=== PATIENT | female | born 1945 | race Caucasian/White ===

== ENCOUNTER 2016-09-30 15:17 | Emergency (ER) | payer MEDICARE, OTHER ==
[~2016-09-30] VITALS: Ht 162.6 cm; Wt 52.3 kg
[2016-09-30 15:22] VITALS: BP 127/67; PULSE 69; RESP 16; O2SAT 100
--- NOTE | 2016-09-30 15:29 | ED.REPORT ---
HPI-Chest Pain 40 and Over Date of Service September 30, 2016 ED Provider: Dr. Bojorquez 71 y/o female with no pertinent hx presents to the ED complaining of constant chest pain which radiates to her left arm, onset 4 days ago. The pt reports the pain feels like "my cat is sitting on me" and rates it 4/10 in severity. Her pain had been intermittent for the last few days but has been constant since waking up today. She states "I don't have good vision today" and "my hands are turning purple". The pt notes that the more anxious she gets, the stronger the pain seems to be. The pt denies waking up from the pain at night, nausea, diaphoresis, palpitations and edema.She also denies any modifying factors of the pain. She was able to do her daily activities and go for a walk for the last few days but she chose not to do any exercise today as a precaution. The pt has not had a stress test. She did not take an aspirin today. Nursing Notes Stated Complaint: CHEST DISCOMFORT SENT FROM Chief Complaint: Chest Pain Nursing Notes Reviewed: Yes ([place], [place] not reconciled) Allergies: Coded Allergies: No Known Allergies (Verified Allergy, Unknown, 10/25/03) Uncoded Allergies: No Known Allergies (Allergy, Unknown, 10/25/03) General Time Seen by MD: 15:27 Chief Complaint Chest pain Hx Obtained From: Patient Arrived By: Walk-in Sudden in Onset?: Yes Onset Occurred: 4 days ago Symptom Duration: Since onset Location: : Chest left Quality: Pressure Radiation: : Arm left Severity: Current: Pain level 4 out of 10 Severity: Maximum: Pain level 4 out of 10 Recent Healthcare: Recent doctor visit Similar Sx Previous: No Past Medical History Past Medical History Breast cancer (s/p surgery) Osteoporosis Past Surgical History Breast cancer Smoking History Never Smoker Social History Other Social History: Good social support, Ambulatory Status Independent Review of Systems Reports: Discoloration of her hands Cardiovascular: Reports: Chest pain, Denies: Edema, Palpitations GI: Denies: Nausea Musculoskeletal: Reports: Extremity pain (left arm) Skin: Denies Diaphoresis Neurologic: Reports: Vision change Psychiatric: Reports: Anxiety Complete sys rev & neg: except as marked. Physical Exam Initial Vital Signs Vital Signs (First) Date Time Temp Pulse Resp B/P Pulse Ox O2 Delivery O2 Flow Rate FiO2 09/30/16 15:22 36.3 69 16 127/67 100 Room Air Initial VS: Reviewed, Vital signs normal Head / Eyes: Atraumatic, Normocephalic, PERRL Neck: Supple, Non-tender, Full range of motion Extremities: Vascular intact, Neuro intact, No swelling, No tenderness Skin: Warm, Dry, No cyanosis Neurologic: Alert, Oriented, Nonfocal General/Constitutional: Awake, Alert, No acute distress, Well appearing, Cooperative Respiratory / Chest: Atraumatic, Breath sounds NL, Breath sounds = bilat, No respiratory distress, No rales, No rhonchi, No wheezing Cardiovascular: Heart rate NL, Regular rhythm, Heart sounds NL, No gallop, No murmurs, No rubs Abdomen: Atraumatic, Soft Lower Extremity / Pelvis / MS: Atraumatic, Full range of motion, No deformity, Neurologic intact, Vascular intact Upper Extremity / MS: Atraumatic, Full range of motion, No deformity, Neurologic intact, Vascular intact Interpretation & Diagnostics Lab Results Interpretation Result Diagram: 09/30/16 1550 09/30/16 1550 Test 09/30/16 15:50 White Blood Count 7.0th/mm3 (3.8-10.1) Red Blood Count 4.25mil/mm3 (3.90-5.20) Hemoglobin 13.2g/dL (12.0-15.6) Hematocrit 39.6% (35.0-46.0) Mean Corpuscular Volume 93.2fL (81-100) Mean Corpuscular Hemoglobin 31.1pg (27.0-35.0) Mean Corpuscular Hemoglobin Concent 33.3% (32.0-37.0) Red Cell Distribution Width 12.5% (12.3-15.4) Platelet Count 215bil/L (150-400) Neutrophils (%) (Auto) 48.1% (40-74) Lymphocytes (%) (Auto) 36.1% (14-46) Monocytes (%) (Auto) 7.9% (4-12) Eosinophils (%) (Auto) 6.8% (0-5) Basophils (%) (Auto) 1.0% (0-3) Sodium Level 142mEq/L (134-144) Potassium Level 3.8mEq/L (3.5-5.2) Chloride Level 102mEq/L (97-108) Carbon Dioxide Level 27mmol/L (18-29) Blood Urea Nitrogen 16mg/dL (8-27) Creatinine 0.92mg/dL (0.57-1.00) Estimat Glomerular Filtration Rate 87mL/min (>59) Glucose Level 94mg/dL (60-99) Calcium Level 9.2mg/dL (8.5-10.1) Magnesium Level 2.0mg/dL (1.6-2.6) Total Bilirubin 0.2mg/dL (0.0-1.2) Aspartate Amino Transf (AST/SGOT) 28U/L (0-50) Alanine Aminotransferase (ALT/SGPT) 18U/L (0-32) Alkaline Phosphatase 75U/L (25-165) Troponin T < 0.010ug/L (0.0-0.011) Total Protein 6.8g/dL (6.4-8.4) Albumin 3.9g/dL (3.4-5.0) Lipase 35U/L (13-60) Hold [place]lain Top Tube Received (Received) Lab Results Interpretation: CBC normal CMP normal Troponin #1 negative-this is after his of continuous symptoms so there is no indication for serial markers) Lipase normal X-Ray Chest Interpretation Chest Xray Interpretation: IMPRESSION: Negative chest. No acute cardiopulmonary process is evident. Dictated by: Allen Long M.D. on 09/30/2016 at 14:57 Approved by: Allen Long M.D. on 09/30/2016 at 14:58 View: Portable, 1 view Interpretation / Wet Read by: Interpret - Radiologist Re-Eval/Medical Decision Med Decision/Clinical Course This is a 71-year-old female presents with somewhat atypical chest discomforts been continuous for several days. It is nonexertional and she has been able to do her regular walk exercise without symptoms, but because it was radial to the shoulder joint to urgent care to get checked out, was referred to the emergency department for further evaluation. His pleuritic discomfort, she wonders if there is a component of anxiety or musculoskeletal. There has been no dyspnea, diaphoresis, nausea vomiting. On exam she has normal vitals, and clinically appears well. He is a normal EKG. She has a normal chest x-ray. And her blood work is normal including a troponin-which in the setting of multiple days of continuous discomfort is indicative that this is not an acute cardiac syndrome/myocardial infarction, or unstable angina. The patient's calculated HEART cor is 2, which she gets 2 points for age- bleeding or low risk for MACE at an appropriate candidate for discharge. An return precautions reviewed with the patient. At this point a dangerous etiology has not been identified. There are no features identified indicate a pulmonary embolus, pneumothorax, pneumonia, esophageal rupture or acute coronary syndrome. Source of Hx: Old records Time of Eval: 17:33 Patient Status: Condition improved Re-Evaluation/Progress Note: Rechecked pt. Discussed lab, imaging results and diagnosis. Informed the pt of the plan to discharge. Pt understands and agrees with plan. F/U instructions and RTER warning given. All questions addressed. Differential Diagnosis: Positive: Chest pain, acute, Negative: Acute coronary syndrome, Dysrhythmia, Esophagitis, Gun shot wound chest, Myocardial infarction, Pneumomediastinum, Pneumonia, Pulmonary edema, Pulmonary embolism, Stab wound chest Counseled Regarding: Diagnosis, Lab results Discharge & Departure Primary Impression: Chest pain Chest pain type: unspecified Qualified Code: R07.9 - Chest pain, unspecified Disposition: Home Discharge Condition All VS Reviewed: Yes Referrals: Kadi Mills MD (PCP) Scribe Attestation Portions of this note were transcribed by Camille Kinney. I, , personally performed the history, physical exam and medical decision-making;I reviewed and confirmed the accuracy of the information in the transcribed note. Signed by Shama Davies. 09/30/16 [id number] copies to: Kadi Mills MD, Matthew F MD September 30, 2016 15:29 Camille Kinney September 30, 2016 15:33
--- NOTE | 2016-09-30 15:59 | DRSVH ---
PROCEDURE: X-RAY CHEST ONE VIEW, PORTABLE ([id number]) INDICATIONS: CP TECHNIQUE: One view of the chest was acquired. COMPARISON: None. FINDINGS: Surgical changes and devices: Clips within the right axillary region are noted. Lungs and pleura: There may be mild hyperexpansion of the lungs. However, evaluation for pulmonary h yperexpansion is difficult without a lateral view. No focal consolidation, effusion, or pneumothorax is evident. Mediastinum: Mediastinal contours appear normal. Heart size is normal. Bones and chest wall: No suspicious bony lesions. Overlying soft tissues appear unremarkable. IMPRESSION: Negative chest. No acute cardiopulmonary process is evident. Dictated by: Allen Long M.D. on 09/30/2016 at 14:57 Approved by: Allen Long M.D. on 09/30/2016 at 14:58
[2016-09-30 16:05] LABS: EOSINOPHILS % (AUTO) 6.8 % (0-5); MONOCYTES % (AUTO) 7.9 % (4-12); Mean Corpuscular Hemoglobin 31.1 pg (27.0-35.0); Mean Corpuscular Volume 93.2 fL (81-100); NEUTROPHILS % (AUTO) 48.1 % (40-74); Platelet Count 215 bil/L (150-400)
[2016-09-30 16:37] LABS: TROPONIN T < 0.010 ug/L (0.0-0.011)
[2016-09-30 17:04] VITALS: BP 117/67; PULSE 71; RESP 16; O2SAT 97
[2016-09-30 17:43] VITALS: BP 125/75; PULSE 68; RESP 16; O2SAT 98
== END 2016-09-30 17:45 | disposition home or self-care (01) ==
LOC: SED 15:17
DX: R07.9 Chest pain, unspecified (principal); Z85.3 Personal history of malignant neoplasm of breast

== ENCOUNTER → 2016-12-01 | Day surgery (SDC) | payer MEDICARE, OTHER ==
[~2016-12-01] VITALS: Ht 162.6 cm; Wt 50.4 kg
[~2016-12-01] MED LIST: ALEN10TA5 PO; Atropine 0.4 mg/mL Inj IVPUSH PRN; CHOL200047 PO; FOLI1TAB3 PO; Lactated Ringer's 1,000 ML IV ONE; Lactated Ringer's 1,000 ML IV SCH; MAGN250T29 PO; MetoCLOpramide 5 mg/mL 2 mL Inj IVPUSH PRN; OMEG-38 PO; Ondansetron 2 mg/mL 2 mL Inj IVPUSH PRN; Propofol 10,000 mCg/mL 20 mL Inj ONE; VIT1TABL83 PO
[2016-12-01 11:35] VITALS: BP 134/70; PULSE 71; RESP 16; O2SAT 100
--- NOTE | 2016-12-01 12:36 | PCM.HPANE ---
Patient Data Date of Service: Dec 01, 2016 Surgeon Admitting Provider: Attending Provider:Shiva Nascimento MD Primary Care Physician:Kadi Mills MD Other Provider:Andrea Landaverde Anesthesia Reason for Visit Colon Ca Screening Ht/WT & BMI Height (Feet): 5 Height (Inches): 4 Weight (Kilograms): 50.35 Body Mass Index 18.00 Allergies Coded Allergies: No Known Allergies (Verified Allergy, Unknown, 10/25/03) Uncoded Allergies: No Known Allergies (Allergy, Unknown, 10/25/03) Past Anesthesia History Anesthesia History: Denies:: Abnormal Airway, Anesthesia Reactions (very nauseous after 1st sx), Difficult Intubation, Fam Anesthesia Reaction, Fam Malignant Hypertherm, Malignant Hyperthermia Diabetes History Hx Diabetes?: No MRSA MRSA: No Medications Hypertension Medication: No Home Meds Incl Beta Nadine: No Reported Medications Cholecalciferol (Vitamin D3) (Vitamin D3)2,000 Unit Capsule2,000 Unit PO 11/30/16 Magnesium Oxide (Magnesium)250 Mg [id number] Mg PO 11/30/16 [place]-3/Dha/Epa/Fish Oil (Fish Oil 1,000 mg Softgel)1 Each Capsule1 Each PO 11/30/16 Folic Acid/Multivits-Min/Lut (Centrum Silver Chewable Tablet)1 Each Tab.chew1 Each PO 11/30/16 Vit B Comp/C/FA/Iron/Vit E (Vitamin B Complex Tablet)1 Each Tablet1 Each PO 11/30/16 Alendronate 10 Mg [id number] Mg PO DAILY Ref 0 11/30/16 History History of ENT Problems?: No HEENT History: Denies:: Abnormal Airway Difficult Intubation Dysphagia Hearing Problem Denture Type: Full- Upper Teeth Condition: Within Normal Limits Hx of Heart Problems?: No Cardiovascular History: Denies:: AICD Atrial Fibrillation Chest Pain Hypertension Pacemaker Valvular Heart Disease Hx of Respiratory Problem?: No Respiratory History: Denies:: Asthma COPD Cough Hemoptysis Pneumonia Tuberculosis Hx Neurologic Problems?: No Neurological History: Denies:: CVA Hx of GI Problems?: No Hx of Problems?: No HX of Peritoneal Dialysis: No Female Hx: Positive for:: Problems with Breasts? (hx breast cancer) Denies:: Currently Hx Musculoskeletal Problems?: No Musculoskeletal History: Denies:: Fibromyalgia Joint Replacement Hx of Psycho/Social Problems?: No Psycho Social History: Denies:: Anxiety Hx Depression Hx Surgeries?: Yes (breast ca in 2002 ) Hx Any Other Health Problems?: Yes Hx Diabetes: No Hx Alcohol Use: Yes (2 glasses of wine per week )Hx Substance Use: No Smoking Status: Smoker Current Status UNK Never Smoker Have You Smoked inLast 12 mo: No Stop/Bang Treated for Sleep Apnea?: No Do You Have a CPAP Machine?: No S-Snoring: Do You Snore Loudly: No T-Tired: feel tired, fatigued: No O-Obsered: Observed not breath: No P-Blood Pressure: treated: No B- Body Mass Index > 35 kg/m2: No A- Age over 50: Yes N- Neck Large Circumference: No G- Gender Male: No CHUCHO Total Score: 1 CHUCHO Risk Assessment: Low Risk, <3 Yes Risk Assessment Category Category 1A: Patient has history of documented sleep apnea, and HAS NOT received any narcotic, sedative or anesthesia administration during this stay. Category 1B: Patient has history of documented sleep apnea, and HAS received any narcotic , sedative or anesthesia administration during this stay Category 2: Patient has SUSPECTED Obstructive Sleep Apnea, and HAS received any narcotic , sedative or anesthesia administration during this stay. Category 3: Patient has SUSPECTED Obstructive Sleep Apnea and HAS NOT received narcotic, sedative or anesthesia administration during this stay. Category 4: Outpatient in Procedural Areas with known sleep apnea or who screen positive for High Risk via the STOP/BANG questionnaire. Exam Exam Vital Signs Vital Signs Date Time Temp Pulse Resp B/P Pulse Ox O2 Delivery O2 Flow Rate FiO2 12/01/16 11:35 71 16 134/70 100 Room Air General Appearance: Alert, Oriented X3, Cooperative HEENT/AIRWAY: MP 2, Neck Movement (Full), Mouth Opening (Wide) Lungs: Clear to Auscultation, Normal Air Movement Heart: Regular Rate/Rhythm, Normal S1, Normal S2 Plan Impression Patient chart reviewed, patient interviewed and anesthestic plan with risks, benefits, and alternatives discussed, and informed consent obtained. NPO per Anesth. Guidelines: Yes ASA Physical Status: ASA2 Mod Systemic Disease Anesthetic Plan: MAC Bene/Risks/Altern/Consents: Yes HP Complete Prior to Induction: Yes Rolando Escobedo MD Dec 01, 2016 11:49
[2016-12-01 13:18] VITALS: BP 107/55; PULSE 82; RESP 14; O2SAT 99
[2016-12-01 13:28] VITALS: BP 111/58; PULSE 63; RESP 14; O2SAT 100
[2016-12-01 13:37] VITALS: BP 130/69; PULSE 63; O2SAT 99
--- NOTE | 2016-12-01 13:57 | PCM.ANEP1 ---
Post Anesthesia PACU Phase 1 Assessment Date of Service: Dec 01, 2016 Vital Signs Vital Signs Date Time Temp Pulse Resp B/P Pulse Ox O2 Delivery O2 Flow Rate FiO2 12/01/16 11:35 71 16 134/70 100 Room Air Anesthetic Administered: MAC Level of Alertness: Awake, talking DUNLAP's with Equal Strength: Yes Pain: No Nausea or Vomiting: No CV Function & Hydration Stable: Yes Airway Device: Oxygen Delivery: Room Air Lungs: Clear to Auscultation, Normal Air Movement PACU Phase 2 Assessment Complications: No Follow up Care: N/A Patient Instructions Provided: N/A Rolando Escobedo MD Dec 01, 2016 13:57
--- NOTE | 2016-12-01 14:38 | ENDO ---
[address] [address] ENDOSCOPY PROCEDURE PATIENT: YAJAIRA BURT : 1945 MR#: [id number] ADMIT: 12/01/2016 JOB ID: [id number] DATE OF SERVICE: 12/01/2016 PRIMARY PROVIDER: Kadi Mills MD PROCEDURE: Colonoscopy with hot snare polypectomy and cold forcep polypectomy. INDICATIONS: A 71-year-old female who reports for colon cancer screening. EQUIPMENT: PCFH-180AL SEDATION: Monitored anesthesia as provided by Dr. Rolando Escobedo. COMPLICATIONS: None identified. BOWEL PREPARATION: Fair, adequate exam. PROCEDURE INFORMATION: After the risks and benefits were explained, written and verbal informed consent was obtained. The patient was brought into the endoscopy suite and placed into the left lateral decubitus position. Sedation was achieved as above. Digital rectal examination accomplished. Mild internal hemorrhoids noted. The scope was introduced into the rectum and advanced to the cecum as identified by the appendiceal orifice and ileocecal valve. The scope was slowly withdrawn to carefully examine the mucosa for any defects or lesions. Multiple direct views were made through the dentate line for exclusion of pathology. The colon was decompressed. The scope removed from the patient who tolerated the procedure well. FINDINGS: There were a couple of diminutive polyps in the rectosigmoid region removed with cold forceps. There was a slightly larger, perhaps 6-7 mm polyp removed with hot snare. All of these were submitted as "rectosigmoid polyps." ENDOSCOPIC DIAGNOSIS: Multiple colon polyps x3. RECOMMENDATION: 1. Await histopathology. 2. Repeat colonoscopy in three years with anesthesia.
--- NOTE | 2016-12-03 15:21 | PATH ---
SURGICAL PATHOLOGY Attending Physician:Pradip Gomez CASE STATUS: Signed Out PATIENT NAME: YAJAIRA BURT PID: [id number] : 1945 DATE COLLECTED:12/01/2016 00:00 SPECIMEN: Colon, Polyp CLINICAL HISTORY: 1). RECTO-SIGMOID POLYP X3 FINAL DIAGNOSIS: Rectosigmoid Colon, Polyp, Biopsy: Portions of tubular adenoma x2; negative for high-grade dysplasia. Portions of sessile serrated adenoma x2. ICD10: K63.5 GROSS DESCRIPTION: The specimen is received in formalin, labeled with the patient's name, sublabeled as rect-sig and consists of multiple fragments of merritt glistening rubbery semitranslucent tissue (1.0 x 0.5 x 0.2 cm in aggregate). Section code: (A) tissue. Specimen entirely submitted. 12/02/16 ICD-9 CODES: CPT CODES: 1: 80982 Electronically Signed Out Marika Robison MD [facility] [address], [place] [address] Technical component performed at [facility], [address] [place] [address] Ave[address], [place], [address]
== END | disposition home or self-care (01) ==
LOC: END 11-14 12:58
PROVIDERS: ATTEND Internal Medicine Gastroenterology
DX: Z12.11 Encounter for screening for malignant neoplasm of colon (principal); D12.7 Benign neoplasm of rectosigmoid junction; Z85.3 Personal history of malignant neoplasm of breast; Z79.899 Other long term (current) drug therapy
CPT/HCPCS: 45380; 45385; J7120